=== PATIENT | female | born 1965 | race Caucasian/White ===

== ENCOUNTER 2018-07-27 12:13 | Emergency (ER) | payer OTHER ==
--- NOTE | 2018-07-27 13:20 | UC ---
Complaint Female HPI - HPI Summary HPI Summary: has had vaginal itch for 3 days, tried one day treatment of OTC monistat without relief yesterday had fullness in lower abd when she urinated and today she has had urinary frequency and burning - History Of Current Complaint Chief Complaint: UCGU Stated Complaint: URINARY ISSUE / PERSONAL ISSUE Time Seen by Provider: 07/27/18 12:44 Hx Obtained From: Patient Hx Last Menstrual Period: 2 wks ago ?: No Onset/Duration: Gradual Onset Timing: Constant Pain Intensity: 0 Aggravating Factor(s): Urination Alleviating Factor(s): Nothing Associated Signs And Symptoms: Positive: Negative. Negative: Vaginal Discharge , Genital Blisters - Allergies/Home Medications Allergies/Adverse Reactions: Allergies Allergy/AdvReac Type Severity Reaction Status Date / Time cephalexin [From Keflex] Allergy Itching Verified 07/27/18 12:29 ciprofloxacin [From Cipro] Allergy See Comment Verified 07/27/18 12:30 Penicillins Allergy Itching Verified 07/27/18 12:29 Sulfa (Sulfonamide Allergy Hives Verified 07/27/18 12:29 Antibiotics) Home Medications: Home Medications Topiramate TAB(*) [Topamax 25 MG tab] 1 tab PO SEE INSTRUCTIONS 07/27/18 [ History Confirmed 07/27/18] PMH/Surg Hx/FS Hx/Imm Hx Previously Healthy: Yes Neurological History: Migraine - Surgical History Surgical History: None - Family History Known Family History: Positive: None Negative: Hypertension, Diabetes - Social History Occupation: Unemployed Lives: With Family Alcohol Use: None Substance Use Type: None Smoking Status (MU): Never Smoked Tobacco Review of Systems Constitutional: Negative Respiratory: Negative Cardiovascular: Negative Genitourinary: Dysuria, Frequency, Urgency, Vaginal/Penile Itching Musculoskeletal: Negative Neurological: Negative Is Patient Immunocompromised?: No All Other Systems Reviewed And Are Negative: Yes Physical Exam Triage Information Reviewed: Yes Appearance: Well-Appearing, No Pain Distress, Well-Nourished Vital Signs: Initial Vital Signs Temp 98.1 F 07/27/18 12:25 Pulse 92 07/27/18 12:25 Resp 18 07/27/18 12:25 BP 124/85 07/27/18 12:25 Pulse Ox 100 07/27/18 12:25 Vital Signs Reviewed: Yes Respiratory Exam: Normal Cardiovascular Exam: Normal Abdomen Description: Positive: Nontender, No Organomegaly, Soft. Negative: CVA Tenderness (R), CVA Tenderness (L) Musculoskeletal Exam: Normal Neurological Exam: Normal Psychological Exam: Normal Skin Exam: Normal Complaint Female Dx - Differential Dx/Diagnosis Differential Diagnosis/HQI/PQRI: Ureteral Stone, Urinary Tract Infection, Other - vaginal yeast Provider Diagnoses: UTI, vaginal yeast infecton Discharge - Sign-Out/Discharge Documenting (check all that apply): Patient Departure All imaging exams completed and their final reports reviewed: No Studies - Discharge Plan Condition: Good Disposition: HOME Prescriptions: Fluconazole [Diflucan] 100 mg PO DAILY #2 tablet Nitrofurantoin Monohyd/M-Cryst [Macrobid 100 mg Capsule] 100 mg PO BID #14 cap Patient Education Materials: Urinary Tract Infection in Women (ED), Yeast Infection (ED) Referrals: No Primary Care Phys,NOPCP [Primary Care Provider] - Additional Instructions: take antibiotics and anti-yeast medications ordered drink plenty of fluids follow-up with urine culture result in 3 days return if symptoms worsen - Billing Disposition and Condition Condition: GOOD Disposition: Home
--- NOTE | 2018-07-28 17:49 | UC ---
- Progress Note Progress Note: Urine Culture results: few enterobacteriacae, possible contamination. Continue antibiotics for symptomatic UTI. Discharge - Sign-Out/Discharge Documenting (check all that apply): Patient Departure All imaging exams completed and their final reports reviewed: No Studies - Discharge Plan Condition: Good Disposition: HOME Prescriptions: Fluconazole [Diflucan] 100 mg PO DAILY #2 tablet Nitrofurantoin Monohyd/M-Cryst [Macrobid 100 mg Capsule] 100 mg PO BID #14 cap Patient Education Materials: Urinary Tract Infection in Women (ED), Yeast Infection (ED) Referrals: No Primary Care Phys,NOPCP [Primary Care Provider] - Additional Instructions: take antibiotics and anti-yeast medications ordered drink plenty of fluids follow-up with urine culture result in 3 days return if symptoms worsen - Billing Disposition and Condition Condition: GOOD Disposition: Home
== END 2018-07-27 13:30 | disposition home or self-care (01) ==
LOC: UCEAST 12:13
DX: N39.0 Urinary tract infection, site not specified (principal); B37.3 Candidiasis of vulva and vagina; G43.909 Migraine, unspecified, not intractable, without status migrainosus; Z88.1 Allergy status to other antibiotic agents; Z88.0 Allergy status to penicillin; Z88.2 Allergy status to sulfonamides
CPT/HCPCS: 81003; 87086; 99202; G0463

== ENCOUNTER 2019-09-09 07:02 | Day surgery (SDC) | payer BC ==
[~2019-09-09 07:02] MED LIST: Buffered Lidocaine 1% SYRIN* 1 ML/SYRINGE INTRADERM ONE
[2019-09-09] MEDS ORDERED: fentaNYL* 50 MCG/ML 2 ML VIAL (100 MCG VIAL) ONE (09:01)
[2019-09-09] MEDS ORDERED: Midazolam* 1 MG/ML 2 ML VIAL (2 MG) ONE (09:01)
[2019-09-09 10:17] VITALS: BP 98/56
[2019-09-09] MEDS ORDERED: Lidocaine 2% w/ EPI 1:200,000* 20 ML SDV VIAL ONE (11:04)
[2019-09-09] MEDS ORDERED: Lidocaine 1% MPF ** 5 ML VIAL ONE (11:04)
[2019-09-09] MEDS ORDERED: Cyclopentolate 1% OPTH.SOL* 2 ML BTL ONE (11:04)
[2019-09-09] MEDS ORDERED: Ketorolac 0.5% OPHTH (NF) 0.5 % 5 ML BTL ONE (11:05)
[2019-09-09] MEDS ORDERED: Proparacaine 0.5% OPHTH.SOL* 15 ML BTL ONE (11:05)
[2019-09-09] MEDS ORDERED: Neomycin/Polymy/Dex OPTH.SUSP* MAXITROL 0.1% 5 ML ONE (11:05)
[2019-09-09] MEDS ORDERED: Phenylephrine OPHTH SOL 2.5%* 2 ML ONE (11:05)
[2019-09-09] MEDS ORDERED: Povidone Iodine 5% OPTH* 30 ML BTL ONE (11:05)
--- NOTE | 2019-09-09 15:03 | OP ---
DATE OF OPERATION: 09/09/19 [facility] DATE OF : 67 SURGEON: Ton Kent M.D. PREOPERATIVE DIAGNOSIS: Cataract, right eye. POSTOPERATIVE DIAGNOSIS: Cataract, right eye. OPERATIVE PROCEDURE: Extracapsular cataract extraction with intraocular lens implant right eye. DESCRIPTION OF PROCEDURE: The patient was brought to the operating room after being given 1/2% Alcaine with epinephrine drops in the preoperative area. The eye was prepped and draped in the usual sterile fashion. Sterile drape and eyelid speculum were placed. Again, topical 1/2% Alcaine with epinephrine was given. A paracentesis incision was made at the 9 o'clock position with the No.75 blade. Clear cornea incision 2.2 x 2.2-mm was created at the 12 o'clock position starting at the anterior limbus using the 2.2-mm keratome. The anterior chamber was irrigated with 0.4 mL of 1% non-preservative intracameral lidocaine and filled with DisCoVisc. A capsulorrhexis was completed using the cystotome and the Utrata forceps. Hydrodissection was performed with balanced salt solution. The lens nucleus was removed with the Phacoemulsification handpiece without incident. Cortex was removed with the irrigation-aspiration handpiece. The capsular bag was re-inflated using DisCoVisc and an [id number] 21.5 implant was inserted with the shooter. The irrigation-aspiration handpiece was used to remove all residual DisCoVisc. The eye was refilled with balanced salt solution and the wound checked and found to be watertight. Topical Maxitrol drops were given. [id number]/[facility] #: [id number] MTDD
== END 2019-09-09 10:03 | disposition home or self-care (01) ==
LOC: OREAST 07:02
PROVIDERS: ATTEND Specialist
DX: H25.811 Combined forms of age-related cataract, right eye (principal); Z88.0 Allergy status to penicillin; Z88.1 Allergy status to other antibiotic agents; F41.8 Other specified anxiety disorders; E78.00 Pure hypercholesterolemia, unspecified; J45.909 Unspecified asthma, uncomplicated; K21.9 Gastro-esophageal reflux disease without esophagitis
CPT/HCPCS: A9270-GY; J2250; J3010; V2632